=== PATIENT | male | born 1980 | race Caucasian/White ===

== ENCOUNTER → 2019-03-15 | Outpatient (CLI) | payer OTHER ==
[~2019-03-15] MED LIST: ASPI-496 PO; DILT240C77 PO; LISI40TA PO; SPIR25TA5 PO
[2019-03-15 09:39] LABS: MICROSCOPIC AUTO
[2019-03-15 09:44] LABS: BASOPHILS # (AUTO) 0.06 x10^3/uL (0-0.1); BASOPHILS % (AUTO) 1 % (0-1); EOSINOPHILS # (AUTO) 0.44 x10^3/uL (0-0.4); EOSINOPHILS % (AUTO) 6 % (1-7); LYMPHOCYTES # (AUTO) 2.71 x10^3/uL (1-3.4); LYMPHOCYTES % (AUTO) 36 % (22-44); MD NO; MEAN CORPUSCULAR HEMOGLOBIN 33.6 pg (27.5-34.5); MEAN CORPUSCULAR HGB CONC 33.8 g/dL (33.2-36.2); MEAN CORPUSCULAR VOLUME 99.6 fL (81-97); MEAN PLATELET VOLUME 8.4 fL (7.4-10.4); MONOCYTES # (AUTO) 0.65 x10^3/uL (0.2-0.8); MONOCYTES % (AUTO) 9 % (2-9); NEUTROPHILS # (AUTO) 3.71 x10^3/uL (1.8-6.8); NEUTROPHILS % (AUTO) 49 % (42-75); PLATELET COUNT 201 x10^3/uL (130-400); RED BLOOD COUNT 5.01 x10^6/uL (4.38-5.82); RED CELL DISTRIBUTION WIDTH 12.4 % (9.4-14.8)
[2019-03-15 09:48] LABS: ALANINE AMINOTRANSFERASE 117 U/L (12-78); ANION GAP 8 mmol/L (5-15); CALCIUM 8.7 mg/dL (8.5-10.1); CHLORIDE 108 mmol/L (98-107)
[2019-03-15 09:50] LABS: CREATININE 1.04 mg/dL (0.7-1.3)
[2019-03-15 09:51] LABS: ALKALINE PHOSPHATASE 90 U/L (45-117); BILIRUBIN,TOTAL 0.8 mg/dL (0.2-1.0); TOTAL PROTEIN 7.8 g/dL (6.4-8.2)
== END | disposition home or self-care (01) ==
LOC: STAR 08:39
PROVIDERS: ATTEND Urology
DX: Z01.818 Encounter for other preprocedural examination (principal); N20.9 Urinary calculus, unspecified
CPT/HCPCS: 36415; 80053; 81001; 85025; 87086

== ENCOUNTER → 2019-03-19 | Outpatient (CLI) | payer OTHER | END | disposition home or self-care (01) | LOC: RAD 12:56 | PROVIDERS: ATTEND Urology | DX: Z01.818 Encounter for other preprocedural examination (principal); N20.9 Urinary calculus, unspecified; N28.89 Other specified disorders of kidney and ureter | CPT/HCPCS: 74018 ==

== ENCOUNTER 2019-03-20 05:21 | Day surgery (SDC) | payer OTHER ==
[2019-03-15 09:08] VITALS: BP 147/102
[~2019-03-20] VITALS: Ht 182.9 cm; Wt 106.8 kg
[2019-03-20] MEDS ORDERED: LACTATED RINGERS 1,000 ML IV SCH (05:59)
[2019-03-20] MEDS ORDERED: MIDAZOLAM 1 MG/ML, 2ML ONE (06:57)
[2019-03-20] MEDS ORDERED: FENTANYL PF 250 MCG/5ML ONE (06:57)
[2019-03-20] MEDS ORDERED: ROCURONIUM 10MG/ML,5ML ONE (07:01)
[2019-03-20] MEDS ORDERED: CEFAZOLIN 1,000 MG ONE (07:01)
[2019-03-20] MEDS ORDERED: NEOSTIGMINE 1 MG/ML, 10ML ONE (07:01)
[2019-03-20] MEDS ORDERED: GLYCOPYRROLATE 0.2MG/1ML, 5ML ONE (07:01)
[2019-03-20] MEDS ORDERED: PROPOFOL 10 MG/ML, 20ML ONE (07:01)
[2019-03-20] MEDS ORDERED: OXYcodone 5 MG/5 ML ORAL.SOL UDC PO PRN (07:30)
[2019-03-20] MEDS ORDERED: PROMETHAZINE 25 MG/ML, 1ML IM PRN ×2 (07:30)
[2019-03-20] MEDS ORDERED: LABETALOL 5MG/ML, 20ML IV PRN (07:30)
[2019-03-20] MEDS ORDERED: ONDANSETRON 2MG/ML, 2ML IV PRN (07:30)
[2019-03-20] MEDS ORDERED: PROMETHAZINE 25 MG/ML, 1ML IV PRN (07:30)
[2019-03-20] MEDS ORDERED: PROMETHAZINE 12.5 MG SUPP PR PRN (07:30)
[2019-03-20] MEDS ORDERED: MORPHINE SULFATE 4 MG/ML, 1ML IVPush PRN (07:30)
[2019-03-20] MEDS ORDERED: ONDANSETRON ODT 8 MG PO PRN (07:30)
[2019-03-20] MEDS ORDERED: FENTANYL PF 100 MCG/2ML IV PRN (07:30)
[2019-03-20] MEDS ORDERED: MEPERIDINE/PF 25MG/0.5ML IVPush PRN (07:30)
[2019-03-20] MEDS ORDERED: HYDROmorphone 2 MG/ML, 1ML IVPush PRN (07:30)
[2019-03-20] MEDS ORDERED: ACETAMINOPHEN 325 MG TABLET PO PRN (07:30)
[2019-03-20] MEDS ORDERED: PROMETHAZINE 25 MG SUPP PR PRN (07:30)
[2019-03-20] MEDS ORDERED: hydrALAzine 20 MG/ML, 1ML IV PRN (07:30)
[2019-03-20] MEDS ORDERED: hydrALAzine 20 MG/ML, 1ML ONE (08:41)
[2019-03-20] MEDS ORDERED: KETOROLAC 30 MG/1 ML ONE (08:43)
== END 2019-03-20 12:20 | disposition home or self-care (01) ==
LOC: OUT 05:21
PROVIDERS: ATTEND Urology
DX: N20.0 Calculus of kidney (principal); I10 Essential (primary) hypertension; Z79.82 Long term (current) use of aspirin
CPT/HCPCS: 50590; J0360; J0690; J1885; J2250; J2704; J2710; J3010; J7120

== ENCOUNTER 2019-04-08 08:33 | Outpatient (CLI) | payer OTHER | END 2019-04-08 23:59 | disposition home or self-care (01) | LOC: RAD 08:33 | PROVIDERS: ATTEND Urology | DX: N20.9 Urinary calculus, unspecified (principal) | CPT/HCPCS: 74018 ==